=== PATIENT | female | born 1995 | race Caucasian/White ===

== ENCOUNTER → 2017-01-12 | Outpatient (CLI) | payer BC, OTHER ==
[~2017-01-12] MED LIST: PREN-63
== END | disposition home or self-care (01) ==
LOC: C.LABSPEC 11:08
PROVIDERS: ATTEND Urology
DX: N23 Unspecified renal colic (principal)

== ENCOUNTER 2017-02-16 15:37 | Outpatient (CLI) | payer BC, OTHER ==
[~2017-02-16] VITALS: Ht 154.9 cm; Wt 63.2 kg
[2017-02-16 16:29] VITALS: Ht 154.9 cm; Wt 63.2 kg
[2017-02-16] MEDS ORDERED: PREN-63 (16:40)
== END 2017-02-16 16:36 | disposition home or self-care (01) ==
LOC: C.OPB 15:37 → C.LD 15:37 → C.OPB 16:36
PROVIDERS: ATTEND Obstetrics & Gynecology
DX: O36.8190 Decreased fetal movements, unspecified trimester, not applicable or unspecified (principal); Z3A.00 Weeks of gestation of pregnancy not specified

== ENCOUNTER → 2017-02-17 | Outpatient (CLI) | payer BC, OTHER | END | disposition home or self-care (01) | LOC: C.LABSPEC 17:13 | PROVIDERS: ATTEND Obstetrics & Gynecology | DX: Z34.83 Encounter for supervision of other normal pregnancy, third trimester (principal) ==

== ENCOUNTER 2017-03-08 18:50 | Outpatient (CLI) | payer BC, OTHER ==
[~2017-03-08] VITALS: Ht 154.9 cm; Wt 67.6 kg
[2017-03-08 19:23] VITALS: Ht 154.9 cm; Wt 67.6 kg
== END 2017-03-08 21:09 | disposition home or self-care (01) ==
LOC: C.OPB 18:50 → C.LD 18:50 → C.OPB 21:09
PROVIDERS: ATTEND Obstetrics & Gynecology
DX: O34.43 Maternal care for other abnormalities of cervix, third trimester (principal); O36.5930 Maternal care for other known or suspected poor fetal growth, third trimester, not applicable or unspecified; Z3A.39 39 weeks gestation of pregnancy

== ENCOUNTER 2017-03-09 07:32 | Inpatient (IN) | payer BC, OTHER ==
[~2017-03-09] VITALS: Ht 154.9 cm; Wt 68.0 kg
[2017-03-09] MEDS ORDERED: LACTATED RINGER'S 1000ML 1,000 ML IV SCH (07:50)
[2017-03-09] MEDS ORDERED: LACTATED RINGER'S 1000ML 500 ML IV PRN ×2 (07:50→14:31)
[2017-03-09] MEDS ORDERED: LACTATED RINGER'S 1000ML 1,000 ML IV PRN (07:50)
[2017-03-09] MEDS: OXYTOCIN 30 UNITS/500ML NSS IV PRN (08:14)
[2017-03-09] MEDS ORDERED: PENICILLIN G POTASSIUM IV 6 MU in DEXTROSE 5% 250ML 250 ML IV ONE (08:15)
[2017-03-09 08:16] LABS: HEMATOCRIT 35.7 % (37-47); MEAN CELL VOLUME 89.9 fL (80-100); MEAN CORPUSCULAR HEMOGLOBIN 30.5 pg (25-34); MEAN CORPUSCULAR HGB CONC 33.9 g/dl (32-36); MEAN PLATELET VOLUME 10.9 fL (7.4-10.4); PLATELET COUNT 263 K/uL (130-400); RED BLOOD COUNT 3.97 M/uL (4.2-5.4); WHITE BLOOD COUNT 14.13 K/uL (4.8-10.8)
[2017-03-09 09:10] VITALS: Ht 154.9 cm; Wt 68.0 kg
[2017-03-09] MEDS: PENICILLIN G POTASSIUM IV 3 MU in DEXTROSE 5% 100ML 100 ML IV PRN ×3 (12:00→20:31)
[2017-03-09] MEDS ORDERED: FENTANYL CITRATE INJ 50 MCG/1 ML 2 ML VIAL ONE (14:02)
[2017-03-09] MEDS ORDERED: FENTANYL 2MCG/ML ROPIV 1.25MG/ML 100ML BAG EPI ONE (14:02)
[2017-03-09] MEDS ORDERED: EpHEDrine SULFATE INJ 50 MG/ML AMP ONE (14:02)
[2017-03-09] MEDS ORDERED: BUPIVACAINE 0.25% 30 ML VIAL ONE (14:02)
[2017-03-09] MEDS ORDERED: NALOXONE HCL INJ 1 MG in SODIUM CHLORIDE 0.9% 1000ML 1,000 ML IV PRN (14:31)
[2017-03-09] MEDS ORDERED: NALBUPHINE HCL INJ 10 MG/ML AMP IV PRN (14:45)
[2017-03-09] MEDS ORDERED: DiphenhydrAMINE HCL 50 MG/ML VIAL IV PRN (14:45)
[2017-03-09] MEDS ORDERED: ONDANSETRON INJ 2 MG/ML 2 ML VIAL IV PRN ×2 (14:45)
[2017-03-09] MEDS ORDERED: NALOXONE HCL INJ 0.4 MG/1 ML VIAL/CARP IV PRN (14:45)
[2017-03-09] MEDS ORDERED: EpHEDrine SULFATE INJ 50 MG/ML AMP IV PRN (14:45)
[2017-03-09] MEDS: FENTANYL 2MCG/ML ROPIV 1.25MG/ML 100ML BAG EPI PRN ×2 (19:11→21:22)
[2017-03-10] MEDS: PENICILLIN G POTASSIUM IV 3 MU in DEXTROSE 5% 100ML 100 ML IV PRN ×2 (00:40→05:27)
[2017-03-10] MEDS: OXYTOCIN 30 UNITS/500ML NSS IV PRN ×2 (02:28→06:35)
[2017-03-10] MEDS: FENTANYL 2MCG/ML ROPIV 1.25MG/ML 100ML BAG EPI PRN (03:56)
[2017-03-10] MEDS ORDERED: BENZOCAINE 20% AER SPR 82.5 GM CAN EXT PRN ×2 (07:15→07:30)
[2017-03-10] MEDS ORDERED: LANOLIN OINT EXT PRN ×4 (07:15→07:30)
[2017-03-10] MEDS ORDERED: SUPERCREAM 0.870 % 15GM JAR EXT PRN ×2 (07:15→07:30)
[2017-03-10] MEDS ORDERED: HYDROCORTISONE ACETATE 25 MG SUPP PR PRN ×2 (07:15→07:30)
[2017-03-10] MEDS ORDERED: OXYCODONE/ACETAMINOPHEN 5-325 TAB PO PRN ×2 (07:15→07:30)
[2017-03-10] MEDS ORDERED: OXYTOCIN 30 UNITS/500ML NSS IV PRN ×2 (07:15→07:30)
[2017-03-10] MEDS ORDERED: MISOPROSTOL 200 MCG TAB ONE (07:17)
[2017-03-10] MEDS ORDERED: LACTATED RINGER'S 1000ML 1,000 ML IV SCH (07:27)
[2017-03-10] MEDS ORDERED: IBUPROFEN 600 MG TAB PO PRN (07:30)
[2017-03-10] MEDS ORDERED: ACETAMINOPHEN 325 MG TAB PO PRN (07:30)
[2017-03-10] MEDS ORDERED: DIPHTHERIA/TETANUS/PERTUSSIS 0.5 ML SYR/VIAL IM. ONE (07:30)
--- NOTE | 2017-03-10 07:43 | Anesthesia Procedure Note ---
Anesthesia Epidural Removal Nt Date & Time Mar 10, 2017 at 07:42 Vital Signs Pain Intensity: 0.0 Notes Mental Status: alert / awake / arousable, participated in evaluation Nausea / Vomiting: adequately controlled Pain: adequately controlled Airway Patency, RR, SpO2: stable & adequate BP & HR: stable & adequate Hydration State: stable & adequate Neuraxial Anesthesia: was administered, sensory block is resolving Anesthetic Complications: no major complications apparent, pt satisfied with anesthetic care Epidural: removed without complications, with tip intact
[2017-03-10] MEDS ORDERED: DOCUSATE SODIUM 100 MG CAP PO SCH (08:00)
--- NOTE | 2017-03-10 08:30 | DELIVERY SUMMARY ---
DATE OF OPERATION: 03/10/2017 VAGINAL DELIVERY NOTE DATE OF DELIVERY: 03/10/2017 PREOPERATIVE DIAGNOSIS: [place] intrauterine at term, prolonged second stage of labor, poor maternal effort, group B strep positive, intrauterine growth restriction. POSTOPERATIVE DIAGNOSIS: Same. PROCEDURE: Forceps assisted vaginal delivery. SURGEON: Dr. Glass. ASSIST: None. ESTIMATED BLOOD LOSS: 400. COMPLICATIONS: None. DISPOSITION: Stable to labor and delivery. DESCRIPTION: Glo Barraza is a 21-year-old nulliparous female who was in labor with a term at the time that I arrived in labor and delivery on the morning of 03/10/2017. Ms. Barraza had reached complete dilation at approximately dinnertime the prior day and remained undelivered at the time that I began taking care of her. Per report of those who had been working with her through the night she had intermittently been making very poor pushing efforts complaining of pain and asking to rest or labor down instead of push. The patient's fetus was known to have symmetrical intrauterine growth restriction and there was not felt to be cephalopelvic disproportion. I assessed the patient myself after arriving on labor and delivery and found the vertex in a left occiput anterior approaching left occiput transverse position and the maternal efforts were poor at best. I offered the patient my advice that delivery should be accomplished in the very near future as it had already been a very long time since she had reached complete dilation without effecting delivery. We discussed the relative merits of both an operative vaginal attempt and a section. The patient and her were then given plenty of time to consider their options and discussed amongst themselves as I was then needed to assist with a section on another patient. Once that delivery was completed I returned to [facility] with Glo and the father of her baby. At that time she requested an attempt of operative vaginal delivery. The bladder was emptied urine via straight catheterization. Reassessment of position was done and the fetus was in KRISTINA position. The Barrera Marlin forceps were lubricated. Ghost application was performed at the bedside and then the maternal right and maternal left forceps blades were slid into position. Using minimal to no force the blades were then articulated bringing the fetus into a direct occiput anterior position. Through the next contraction the mother was guided through her pushing efforts and asked to give maximal effort which she did and with gentle downward traction and then upward traction guiding the head through the canal we were able to bring the head to . The mother was then instructed to stop pushing, the forceps were disarticulated and gently slid out of position. The remaining delivery was then accomplished by maternal efforts alone. She was able to deliver her in the direct occiput anterior position with a very tight nuchal cord which was just able to be reduced at the perineum. The remainder of the then delivered with no difficulty whatsoever. The which was vigorous was placed on the maternal abdomen where the cord was doubly clamped and cut by the father of the baby. The placenta then delivered spontaneously and was noted to be intact with a 3-vessel cord. Careful examination of the cervix, vagina and perineum revealed approximately 2 cm left lateral vaginal wall laceration. This was repaired in a running locked manner using 2-0 Vicryl suture. The vulva and perineal skin were without any lacerations whatsoever and the cervix was intact as well. Following repair the fundus was firm, lochia was minimal and mother and infant were in good condition having tolerated delivery well. I attest to the content of the Intraoperative Record and any orders documented therein. Any exception s are noted below.
[2017-03-10 09:25] VITALS: BP 119/78; PULSE 102; TEMP 36.5
[2017-03-10] MEDS: PRENATAL VITAMIN TAB PO SCH (09:59)
[2017-03-10] MEDS: DOCUSATE SODIUM 100 MG CAP PO SCH ×2 (09:59→19:45)
[2017-03-10] MEDS: IBUPROFEN 600 MG TAB PO PRN ×2 (10:00→18:11)
[2017-03-10 13:00] VITALS: BP 121/81; PULSE 87; TEMP 36.7
[2017-03-10 15:30] VITALS: BP 133/89; PULSE 81; TEMP 36.7; O2SAT 97
[2017-03-10 19:45] VITALS: BP 117/75; PULSE 90; TEMP 37; O2SAT 98
[2017-03-11] VITALS: BP 97/62; PULSE 76; TEMP 36.5; O2SAT 98
[2017-03-11 04:15] VITALS: BP 103/64; PULSE 81; TEMP 36.7; O2SAT 96
[2017-03-11] MEDS: IBUPROFEN 600 MG TAB PO PRN ×2 (04:24→13:31)
[2017-03-11 06:35] LABS: HEMATOCRIT 28.9 % (37-47)
--- NOTE | 2017-03-11 07:01 | Progress Note ---
Subjective Mar 11, 2017. Subjective conversation w/ patient, physical exam, chart review, lab review Ambulation: ambulating normally Voiding: no voiding problems Passing Gas: Yes Diet Tolerance: Regular Diet Lochia: Small Feeding Type: Bottle Feeding Pain: Notes some mild cramping Comment: Found pt resting comfortably, denies any particular acute c/o. Review of Systems Constitutional: No fever, No chills Respiratory: No cough, No shortness of breath Cardiac: No chest pain, No edema Abdomen: No nausea, No vomiting, No diarrhea Female : No dysuria Objective Vital Signs Date Time Temp Pulse Resp B/P (MAP) Pulse Ox O2 Delivery O2 Flow Rate FiO2 03/11/17 04:15 36.7 81 16 103/64 (77) 96 Room Air 03/11/17 00:00 36.5 76 16 97/62 (74) 98 Room Air 03/11/17 00:00 Room Air 03/10/17 19:45 37.0 90 18 117/75 (89) 98 Room Air 03/10/17 15:30 Room Air 03/10/17 15:30 36.7 81 20 133/89 (104) 97 Room Air 03/10/17 13:00 36.7 87 20 121/81 (94) Room Air 03/10/17 09:25 36.5 102 20 119/78 (92) Room Air 03/10/17 09:25 Room Air Physical Exam General Appearance: WELL-APPEARING, WD/WN, NO APPARENT DISTRESS Respiratory/Chest: lungs clear, normal breath sounds, no respiratory distress Cardiovascular: regular rate, rhythm, no edema Abdomen: normal bowel sounds, non tender, soft Fundus: Firm, Non-Tender, Relation to Umbilicus (approx two down) Extremities: normal range of motion, no pedal edema, no calf tenderness Laboratory Results Last 24 Hours Test 03/11/17 06:09 Hemoglobin 9.6 g/dL Hematocrit 28.9 % Assessment and Plan Post- Day#: 1 Continue Routine Care: 21F s/p vaginal delivery (forceps assist), now PPD #1. - Blood type B positive. GBS positive, s/p antibiotics pre-delivery. Rubella immune. - Vital signs reviewed and stable. - Pain/cramping controlled with motrin. - No leg swelling or tenderness on calf palpation. Encourage ambulation. - Pt is bottle feeding. - Hemoglobin pre-delivery 12.1, post-delivery 9.6. Bleeding has improved. Continue to monitor clinically. - Continue routine post-vaginal delivery care. - Pt agreed with above plan, all current questions answered. Sascha Berrios MD, PGY1 Rectifying Attendant Physician Supervision Note: I interviewed and examined the patient. Discussed with Dr. Berrios and agree with findings and plan as documented in the note. Any exceptions or clarifications are listed here: [None] Documented By: Marina Glass Resident Tracking Resident Involvement: Resident Care Provided Care Provided: OB Delivery (OB rounds)
[2017-03-11 08:00] VITALS: BP 106/68; PULSE 73; TEMP 36.3
[2017-03-11] MEDS: DOCUSATE SODIUM 100 MG CAP PO SCH ×2 (08:02→19:54)
[2017-03-11] MEDS: PRENATAL VITAMIN TAB PO SCH (08:02)
[2017-03-11 15:25] VITALS: BP 112/76; PULSE 81; TEMP 36.3; O2SAT 98
[2017-03-11] MEDS ORDERED: BISACODYL 5 MG TABEC PO SCH (20:00)
--- NOTE | 2017-03-11 22:10 | Discharge Instructions ---
Discharge Instructions Date of Service Mar 11, 2017. Admission Reason for Admission: Induction Discharge Discharge Diagnosis / Problem: s/p vaginal delivery Discharge Goals Goal(s): Routine recovery after delivery Medications Continue Dispensed Medications: supercream, dermaplast, tucks, lansinoh Activity Recommendations Activity Limitations: per Instructions/Follow-up section . Instructions / Follow-Up Instructions / Follow-Up ACTIVITY RECOMMENDATIONS: * Gradual return to full activity over the next 2-3 weeks. * No lifting - nothing heavier than baby over the next 2-3 weeks. * Do not engage in vigorous exercise, sexual activity or sports until cleared by your physician. * Do not drive or operate any motorized equipment until cleared by your physician. * You may shower/bathe daily. MEDICATIONS: For discomfort or pain, you may use Acetaminophen (Tylenol), Ibuprofen (Advil), or Naproxen (Aleve) following the package directions. For constipation you may use Colace following the package directions. BREAST CARE: If you are not breast feeding: * Wear a supportive bra 24 hours a day for one to two weeks. * Avoid stimulating your breasts and nipples as much as possible during the first few weeks after delivery. * When taking a shower, have the warm water hit your back, not breasts. * When your breasts feel full, apply ice packs. Usually three to four times a day helps ease the discomfort. * Take a mild pain medication (Tylenol / Motrin) when you are uncomfortable. If breast feeding: * Use breast milk to lubricate nipples. Lansinoh cream may be used for sore nipples. You do not need to remove cream prior to breast feeding. If using a different brand of cream, check the label for directions regarding removal of cream prior to nursing. * Wear a supportive bra. * If having problems with breasts or breast feeding, call a application packaging consultant or your health care provider. EPISIOTOMY CARE: After delivery, if you have an episiotomy (stitches), the following steps will ease discomfort and aid healing. * For the first 24 hours after delivery, place ice packs next to your episiotomy to help reduce swelling. * After the first 24 hour-period, sitz baths, either portable or in the tub, are suggested. A shower with a shower arm sprayed over the episiotomy may be comforting. * Beryl care should be done after each voiding and bowel movement. Squirt warm water from a plastic bottle over the perineum (region of the body between the anus and urinary opening) and pat dry. * Use Dermoplast to ease discomfort. Shake container. Zoe directly over the episiotomy. Place a Tucks on a clean sanitary pad next to your episiotomy. SPECIAL CARE INSTRUCTIONS: When you are discharged from the hospital, it is important for you to follow the instructions listed below: * During the first week at home, you should be able to care for yourself and your baby. In addition, the usual light household activities are encouraged. * Limit your activities to the way you feel. Do not try to clean the house or move furniture. Be sensible. * If you actively engage in sports and have done so up until the time of your delivery, you may resume these activities as soon as you feel able. This may take up to one month or even longer. Use good judgment. * Continue to take your vitamins for at least six weeks after the of your baby. * Your diet need not be limited unless you were on a special diet before your delivery. Breast-feeding mothers need around 2500 calories per day and at least 64-80 ounces of fluid per day (8 to 10 glasses). * You should eat foods from the four major food groups. Crash diets or fad diets are to be avoided. Eating lean meats, fresh fruits and vegetables, low-fat dairy products, high fiber foods and a regular exercise program, will help you get back to your pre- weight without putting your health at risk. * Constipation is sometimes a problem after delivery. Take a mild laxative as needed. If breast feeding, Milk of Magnesia is acceptable to use. You may use a suppository or Fleets enema if no episiotomy. * A daily shower or tub bath is suggested. Be sure to thoroughly and gently dry the perineum. * A bloody vaginal discharge will usually continue until around four weeks post . A small amount of bleeding may continue for as long as six weeks. Vaginal discharge changes from the bright red bleeding after delivery to pink then brownish and finally yellowish-pink before becoming white and disappearing. * Bleeding may increase with activity. Your first period may come in 4-8 weeks. If you are breast feeding, your period may be delayed even longer. * Bricelyn (sex) can begin whenever both you and your partner feel comfortable and do not have any form of genital infection. It is recommended that you wait at least six weeks for internal and external healing to occur. If you have questions, please talk to your health care practitioner. A condom should be used to prevent infection and . * Foreplay, gentle intercourse and lubrication is very important the first several times to prevent pain. A water-based lubricant such as K-Y jelly or Astroglide may be used. * If you have RH negative blood and your baby is RH positive, you will receive RHOGAM by injection prior to discharge. The nurse will give you a card to keep with you that has the date and place that you received RHOGAM after delivery. * During your care, you had a Rubella screen done to check for the presence of rubella antibodies in your blood. If your test was negative, you will receive a Rubella vaccine prior to discharge. This vaccine may cause a fever, soreness at the injection site and flu-like symptoms. If these symptoms persist, notify your health care practitioner. is not advised for one month after a Rubella vaccine. * Verbalizes understanding of car seat law as reviewed with patient nursing. * Car Seat hand-out given and reviewed with patient by nursing. * Shaken baby information reviewed with patient by nursing. Call you doctor if: * Heavy bleeding (saturating several pads an hour) or passing clots the size of your fist. * A fever >101 degrees F (38.3 degrees C) on two occasions four hours apart and /or chills. * Unusual pain in the pelvic or vaginal areas. * "Baby Blues" lasting longer than two weeks. If you have any questions or concerns, call your health care practitioner at . FOLLOW UP VISIT: * Please call the office at to schedule a 6 week examination. It is important you keep this appointment. It is important for you to make arrangements for either yearly or twice yearly check-ups thereafter. Current Hospital Diet Patient's current hospital diet: Regular OB Diet Discharge Diet Recommended Diet: Regular Diet Pending Studies Studies pending at discharge: no Medical Emergencies . Who to Call and When: Medical Emergencies: If at any time you feel your situation is an emergency, please call 911 immediately. . Non-Emergent Contact Non-Emergency issues call your: Slab Installer . . "Provider Documentation" section prepared by Lydia Menezes. . VTE Core Measure Inpt VTE Proph given/why not?: Treatment not indicated
[2017-03-12 00:25] VITALS: BP 109/67; PULSE 85; TEMP 36.8
[2017-03-12] MEDS ORDERED: BISACODYL 10 MG SUPP PR PRN (07:00)
[2017-03-12 07:01] VITALS: BP 110/74; PULSE 67; TEMP 36.8; O2SAT 97
--- NOTE | 2017-03-12 07:39 | Progress Note ---
Subjective Mar 12, 2017. Subjective conversation w/ patient, physical exam, chart review, lab review Ambulation: ambulating normally Voiding: no voiding problems Passing Gas: Yes Diet Tolerance: Regular Diet Lochia: Small Feeding Type: Bottle Feeding Pain: Notes mild low abd cramping Comment: Found pt standing next to bed with baby. Denies any acute concerns. Review of Systems Constitutional: No fever, No chills Respiratory: No cough, No shortness of breath Cardiac: No chest pain, No edema Abdomen: No nausea, No vomiting, No diarrhea Female : No dysuria Objective Vital Signs Date Time Temp Pulse Resp B/P (MAP) Pulse Ox O2 Delivery O2 Flow Rate FiO2 03/12/17 00:25 36.8 85 20 109/67 (81) Room Air 03/12/17 00:25 Room Air 03/11/17 15:25 Room Air 03/11/17 15:25 36.3 81 20 112/76 (88) 98 Room Air 03/11/17 08:00 36.3 73 16 106/68 (81) Room Air 03/11/17 08:00 Room Air Physical Exam General Appearance: WELL-APPEARING, WD/WN, NO APPARENT DISTRESS Respiratory/Chest: lungs clear, normal breath sounds, no respiratory distress Cardiovascular: regular rate, rhythm, no murmur Abdomen: normal bowel sounds, non tender, soft Fundus: Firm, Non-Tender, Relation to Umbilicus (approx two down) Extremities: normal range of motion, no pedal edema, no calf tenderness Assessment and Plan Post- Day#: 2 Continue Routine Care: 21F s/p vaginal delivery (forceps assist), now PPD #2. - Blood type B positive. GBS positive, s/p antibiotics pre-delivery. Rubella immune. - Vital signs reviewed and stable. - Pain controlled with motrin. - No leg swelling or tenderness on calf palpation. Encourage ambulation. - Pt is bottle feeding. - Hemoglobin pre-delivery 12.1, post-delivery 9.6. Bleeding improving. Continue to monitor clinically. - Continue routine post-vaginal delivery care. Reviewed discharge precautions with patient. - Pt agreed with above plan, all current questions answered. Sascha Berrios MD, PGY1 Toy Assembly Supervisor Physician Supervision Note: I interviewed and examined the patient. Discussed with Dr. Berrios and agree with findings and plan as documented in the note. Any exceptions or clarifications are listed here: Doing well. Plan d/c. Instructions given. Documented By: Lydia Menezes Resident Tracking Resident Involvement: Resident Care Provided Care Provided: OB Delivery (OB rounds)
[2017-03-12] MEDS: PRENATAL VITAMIN TAB PO SCH (08:25)
[2017-03-12] MEDS: DOCUSATE SODIUM 100 MG CAP PO SCH (08:25)
[2017-03-12] MEDS: IBUPROFEN 600 MG TAB PO PRN (08:30)
[2017-03-12 12:02] VITALS: BP_DIAS 74; PULSE 67; TEMP 36.8
== END 2017-03-12 12:17 | disposition home or self-care (01) | DRG 775 ==
LOC: C.LD 07:32 → C.OBG 03-10 09:33
PROVIDERS: ADMIT Obstetrics & Gynecology; ATTEND Obstetrics & Gynecology
PROC: 10D07Z3 Extraction of Products of Conception, Low Forceps, Via Natural or Artificial Opening (ICD-10-PCS; principal; 2017-03-10)
PROC: 0HQ9XZZ Repair Perineum Skin, External Approach (ICD-10-PCS; principal; 2017-03-10)
DX: O70.0 First degree perineal laceration during delivery (principal); O69.1XX1 Labor and delivery complicated by cord around neck, with compression, fetus 1; O63.1 Prolonged second stage (of labor); O99.820 Streptococcus B carrier state complicating pregnancy; Z37.0 Single live birth; Z3A.39 39 weeks gestation of pregnancy